=== PATIENT | male | born 1965 | race Caucasian/White ===

== ENCOUNTER 2016-09-30 10:23 | Day surgery (SDC) | payer OTHER ==
[~2016-09-30] VITALS: Ht 182.9 cm; Wt 87.6 kg
[2016-09-30] VITALS (7 sets, daily range): BP systolic 113–128; BP diastolic 74–95; PULSE 56–66; RESP 14–18; O2SAT 95–99
[~2016-09-30 10:23] MED LIST: Dexamethasone 4 mg/mL Inj IVPUSH PRN; EPHEDrine Sulfate 50 mg/mL Inj IVPUSH PRN; GABA-502 PO; HYDROmorphone 1 mg/mL Inj IVPUSH PRN; Labetalol 5 mg/mL 4 mL Inj IV PRN; Lactated Ringer's 1,000 ML IV SCH; Lactated Ringer's 500 ML IV PRN; MetoCLOpramide 5 mg/mL 2 mL Inj IVPUSH PRN; OMEP20TA24 PO; Ondansetron 2 mg/mL 2 mL Inj IVPUSH PRN; Phenylephrine 10,000 mCg/mL Inj IVPUSH PRN; fentaNYL-PF 50 mCg/mL 2 mL Inj IVPUSH PRN; hydrALAZINE 20 mg/mL Inj IVPUSH PRN
[2016-09-30] MEDS ORDERED: Ketamine 10 mg/mL 20 mL Inj ONE (10:24)
[2016-09-30] MEDS ORDERED: Propofol 10,000 mCg/mL 20 mL Inj ONE (10:24)
[2016-09-30] MEDS: Lactated Ringer's 1,000 ML IV SCH ×3 (10:25→14:24)
[2016-09-30] MEDS ORDERED: CeFAZolin Inj 2 gm / 50mL D5W IV ONE (10:38)
[2016-09-30] MEDS: CeFAZolin Inj 2 GM in IV Premix 1 EACH IV ONE ×2 (14:12→14:28)
--- NOTE | 2016-09-30 14:16 | PCM.HPANE ---
Patient Data Date of Service: Sep 30, 2016 Surgeon Admitting Provider: Attending Provider:Rolly Venegas DPM Primary Care Physician:Darien Duran DO Other Provider:José Miguel Joy Anesthesia Reason for Visit Retained Painful Hardware Right Ankle Ht/WT & BMI Height (Feet): 6 Height (Inches): 0.00 Weight (Kilograms): 87.6 Body Mass Index 26.00 Allergies Coded Allergies: No Known Allergies (Verified Allergy, Unknown, 09/29/16) Past Anesthesia History Anesthesia History: Denies:: Abnormal Airway, Anesthesia Reactions, Difficult Intubation, Fam Anesthesia Reaction, Fam Malignant Hypertherm, Malignant Hyperthermia Diabetes History Hx Diabetes?: No MRSA MRSA: No Medications Home Meds Incl Beta Tashi: No Reported Medications Omeprazole Magnesium (Prilosec Otc)20 Mg Tablet.dr20 Mg PO DAILY #1 PKG Ref 0 09/29/16 Discontinued Reported Medications Gabapentin 300 Mg [id number] Mg PO TID Ref 0 09/29/16 Omeprazole (Prilosec)20 Mg Capcr20 Mg PO DAILY 30 Days Ref 0 09/16/15 Hydrocodone-Acetaminophen 5-325 mg 1 Each Tablet1 Tablet PO Q6H PRN For Pain Ref 0 09/16/15 Naproxen Sodium (Aleve)220 Mg [id number] Mg PO BID 09/16/15 History History of ENT Problems?: Yes HEENT History: Positive for:: Dysphagia (hx of sharri and esophageal dilations ) Denies:: Abnormal Airway Cataracts Difficult Intubation Hearing Problem Sinus Problem TMJ (possible - no nightguard) Denture Type: None Teeth Condition: Within Normal Limits Hx of Heart Problems?: No Cardiovascular History: Denies:: AICD Atrial Fibrillation Chest Pain Edema Hypertension Irregular Heartbeat Pacemaker Valvular Heart Disease Hx of Respiratory Problem?: No Respiratory History: Denies:: Asthma COPD Cough Hemoptysis Oxygen Administration Pneumonia Tuberculosis Use of C-PAP Machine Hx Neurologic Problems?: No Neurological History: Denies:: CVA Dementia Headaches Multiple Sclerosis Parkinson's Disease Seizures Hx of GI Problems?: Yes Other GI Pertinent History: S/P RT INGUINAL HERNIA RPR Hx of Problems?: No Genitourinary History: Denies:: Kidney Stones Urinary Tract Infection Male Hx: Positive for:: Scrotal Mass (S/P LT SPERMATOCELECTOMY) Denies:: Prostate Problems Testicular Surgery Skin History: Denies:: History Skin Disorders? Pressure Ulcers Hx Musculoskeletal Problems?: Yes Musculoskeletal History: Positive for:: Musculoskeletal Trauma (S/P ORIF RT ANKLE RETAINED PAINFUL HARDWARE RT ANKLE=CURRENT PROBLEM) Denies:: Back Injury (C/OF LOWER BACK PAIN) Joint Replacement Systemic Lupus Hx of Psycho/Social Problems?: No Psycho Social History: Denies:: Anxiety Hx Depression Hx Surgeries?: Yes (RT INGUINAL HERNIA,BILAT KNEES,RT SHOULDER,LT SPERMATOCELE, SHARRI FUNDOPLIC) Hx Any Other Health Problems?: Yes Other History: Denies:: Cancer Endocrine Disease Hospitalization Thyroid Disease History Blood Transfusions: Denies:: Blood Transfusions Hx Diabetes: No Hx Alcohol Use: YesAlcoholic Drinks Per Day: 2/MONTHHx Substance Use: No Smoking Status: Never Smoker Have You Smoked inLast 12 mo: No Stop/Bang S-Snoring: Do You Snore Loudly: No T-Tired: feel tired, fatigued: No O-Obsered: Observed not breath: No P-Blood Pressure: treated: No B- Body Mass Index > 35 kg/m2: No A- Age over 50: Yes N- Neck Large Circumference: No G- Gender Male: Yes CHUCHO Total Score: 2 CHUCHO Risk Assessment: Low Risk, <3 Yes Risk Assessment Category Category 1A: Patient has history of documented sleep apnea, and HAS NOT received any narcotic, sedative or anesthesia administration during this stay. Category 1B: Patient has history of documented sleep apnea, and HAS received any narcotic , sedative or anesthesia administration during this stay Category 2: Patient has SUSPECTED Obstructive Sleep Apnea, and HAS received any narcotic , sedative or anesthesia administration during this stay. Category 3: Patient has SUSPECTED Obstructive Sleep Apnea and HAS NOT received narcotic, sedative or anesthesia administration during this stay. Category 4: Outpatient in Procedural Areas with known sleep apnea or who screen positive for High Risk via the STOP/BANG questionnaire. Exam Exam Vital Signs Vital Signs Date Time Temp Pulse Resp B/P Pulse Ox O2 Delivery O2 Flow Rate FiO2 09/30/16 10:58 36.1 63 18 119/74 97 Room Air General Appearance: Alert, Oriented X3, Cooperative, No Acute Distress HEENT/AIRWAY: MP 2 Lungs: Clear to Auscultation, Normal Air Movement Heart: Exam Unremarkable, Regular Rate/Rhythm, No Murmurs/Rubs/Gallops Meds/Labs/Diagnostics Admission Meds Current Medications Lactated Ringer's 1,000 ml @ 120 mls/hr Q8H20M IV Last administered on 14:12; Start 09/30/16 at 05:00; Stop 09/30/16 at 13:19; Status DC Cefazolin Sodium/ Dextrose/Premix (Ancef Inj/IV Premix) 100 ml @ 200 mls/hr ONCE ONCE IV Last administered on 09/30/16 14:12; Start 09/30/16 at 09:00; Stop 09/30/16 at 09:29; Status DC Plan Impression Patient chart reviewed, patient interviewed and anesthestic plan with risks, benefits, and alternatives discussed, and informed consent obtained. NPO per Anesth. Guidelines: Yes ASA Physical Status: ASA2 Mod Systemic Disease Anesthetic Plan: MAC Bene/Risks/Altern/Consents: Yes HP Complete Prior to Induction: Yes Rolly Moncada MD Sep 30, 2016 14:16
[2016-09-30] MEDS ORDERED: Bupivacaine-MPF 0.5% W/EPI 30 mL Inj INFILTRATE ONE (14:24)
[2016-09-30] MEDS ORDERED: oxyCODONE-Acetamin 5-325 mg Tablet PO PRN (15:45)
--- NOTE | 2016-09-30 15:50 | PCM.PODPO ---
Podiatry Operative Report Date of Service: Sep 30, 2016 Date of Service Sep 30, 2016 Pre Operative Diagnosis Painful retained hardware right ankle Post Operative Diagnosis Same as preoperative diagnoses Procedure Removal of hardware right ankle Surgeon Surgeon: Rolly Venegas DPM Assistants: None Indication for Procedure Painful retained hardware right ankle Findings No significant findings noted Details of Procedure Patient was identified in the preoperative holding area. All preoperative comorbidities and allergies were identified and thoroughly discussed. The patient was transported into the operating room and placed on the operating room table in the normal supine position. The patient was then prepped and draped in the normal aseptic technique. A preoperative local block was given consisting of 10 mL half percent Marcaine plain to the lateral ankle and distal fibular shaft. Mac anesthesia was induced by the anesthesia service. A linear incision approximately 2 cm in length was made over the distal aspect of the fibula and lateral malleolus. This incision was carried down directly to internal fixation. Deep tissue was dissected both anteriorly and posteriorly exposing the distal aspect of the fibular plate and internal hardware. The 4 distal screws were removed in the normal technique without issue. Intraoperative C-arm x-ray was then utilized to identify the location of the proximal to fibular shaft screws. Stab incision was made overlying each one of the screws and the screw was removed without incident. The plate was loosened with an osteotome from the fibula and removed through the distal incision. The wounds were then flushed with copious amounts of normal saline. Proximal stab incisions were closed with 3. 0 Prolene suture. Distal incision site was closed utilizing 3. 0 Vicryl for subcutaneous closure and 3. 0 Prolene for skin. No competitions occur during this procedure. The patient was placed into a dressing consisting of sterile 4 x 4 gauze Adaptic Kerlix and a loosely applied Wali bandage. The patient was then placed into a protective walking boot. He was awoken by anesthesia and transported out of the operating room. Grafts, Implants: None Complications There were no periprocedural complications identified. Condition Stable Anesthetic Administered: MAC Catheters: None Output, Estimated Blood Loss: 20 Blood Admin during surgery: No Surgical Cast or Splint: Post-op Boot Surgical Specimen Removed: No Specimen sent to Pathology: No Post Operative Plan Partial weightbearing as tolerated to the right heel with limited activity Ice and elevate as needed Keep dressing clean dry and intact Advance diet as tolerated Pain medication as needed for severe pain only Follow-up in 1 week Rolly Venegas DPM Sep 30, 2016 15:50
--- NOTE | 2016-09-30 22:34 | PCM.ANEP1 ---
Post Anesthesia PACU Phase 1 Assessment Vital Signs Vital Signs Date Time Temp Pulse Resp B/P Pulse Ox O2 Delivery O2 Flow Rate FiO2 09/30/16 16:35 60 16 128/95 99 Room Air 09/30/16 16:11 56 16 119/82 99 Room Air 09/30/16 16:05 60 16 120/80 98 Room Air 09/30/16 16:00 62 16 126/88 97 Room Air 09/30/16 15:50 66 16 126/82 95 Room Air 09/30/16 15:41 36.3 66 14 113/78 98 Room Air Anesthetic Administered: MAC Level of Alertness: Awake, talking Pain: No Nausea or Vomiting: No CV Function & Hydration Stable: Yes Airway Device: nothing Oxygen Delivery: Room Air Lungs: Clear to Auscultation, Normal Air Movement PACU Phase 2 Assessment Complications: No Patient Instructions Provided: N/A Rolly Moncada MD Sep 30, 2016 22:34
== END 2016-09-30 23:59 | disposition home or self-care (01) ==
LOC: SAS 10:23
PROVIDERS: ATTEND Podiatrist Foot & Ankle Surgery
PROC: 0QPJ04Z Removal of Internal Fixation Device from Right Fibula, Open Approach (ICD-10-PCS; principal; 2016-09-30 12:15)
DX: T84.84XA Pain due to internal orthopedic prosthetic devices, implants and grafts, initial encounter (principal); M25.571 Pain in right ankle and joints of right foot; Y83.8 Other surgical procedures as the cause of abnormal reaction of the patient, or of later complication, without mention of misadventure at the time of the procedure
CPT/HCPCS: 20680; 76000; J0690; J2250; J7120